=== PATIENT | male | born 1935 | race Caucasian/White ===

== ENCOUNTER 2019-06-12 10:30 | Observation (INO) | payer MEDICARE ==
[~2019-06-12] VITALS: Ht 175.3 cm; Wt 59.8 kg
[2019-06-12] MEDS ORDERED: SODIUM CHLORIDE 0.9% 1,000 ML IV SCH (11:20)
[2019-06-12] MEDS ORDERED: PLEASE ENTER HEIGHT AND WEIGHT MC SCH (11:30)
[2019-06-12] MEDS ORDERED: CEFAZOLIN PMX 1GM/50ML 50 ML IVPB ONE (11:30)
[2019-06-12] MEDS ORDERED: EZET10TA18 PO (11:31)
[2019-06-12] MEDS ORDERED: OMEP-110 PO (11:31)
[2019-06-12] MEDS ORDERED: AMLO10TA8 PO (11:31)
[2019-06-12 11:33] VITALS: BP 103/69
[2019-06-12] MEDS ORDERED: LIDOCAINE 1%, 20ML ONE (12:08)
[2019-06-12] MEDS ORDERED: FENTANYL PF 100 MCG/2ML ONE (12:08)
[2019-06-12] MEDS ORDERED: MIDAZOLAM 1 MG/ML, 2ML ONE (12:08)
[2019-06-12] MEDS ORDERED: CEFAZOLIN PMX 1GM/50ML 50 ML ONE (12:08)
[2019-06-12] MEDS ORDERED: CEFAZOLIN 1,000 MG ONE (12:08)
[2019-06-12 12:10] LABS: BASOPHILS # (AUTO) 0.09 x10^3/uL (0-0.1); BASOPHILS % (AUTO) 1 % (0-1); EOSINOPHILS # (AUTO) 0.08 x10^3/uL (0-0.4); EOSINOPHILS % (AUTO) 1 % (1-7); LYMPHOCYTES # (AUTO) 1.22 x10^3/uL (1-3.4); LYMPHOCYTES % (AUTO) 14 % (22-44); MD NO; MEAN CORPUSCULAR HEMOGLOBIN 31.5 pg (27.5-34.5); MEAN CORPUSCULAR HGB CONC 32.9 g/dL (33.2-36.2); MEAN CORPUSCULAR VOLUME 95.6 fL (81-97); MEAN PLATELET VOLUME 6.3 fL (7.4-10.4); MONOCYTES # (AUTO) 0.55 x10^3/uL (0.2-0.8); MONOCYTES % (AUTO) 6 % (2-9); NEUTROPHILS % (AUTO) 78 % (42-75); PLATELET COUNT 409 x10^3/uL (130-400); RED BLOOD COUNT 4.57 x10^6/uL (4.38-5.82); RED CELL DISTRIBUTION WIDTH 13.5 % (9.4-14.8)
[2019-06-12 12:22] LABS: ALBUMIN 3.1 g/dL (3.4-5.0); ANION GAP 5 mmol/L (5-15); CALCIUM 9.9 mg/dL (8.5-10.1); CHLORIDE 109 mmol/L (98-107)
[2019-06-12 12:27] LABS: ALANINE AMINOTRANSFERASE 26 U/L (12-78); ALKALINE PHOSPHATASE 90 U/L (45-117); BILIRUBIN,TOTAL 0.6 mg/dL (0.2-1.0); CHOL/HDL RATIO 2.6; CHOLESTEROL, TOTAL 157 mg/dL (140-239); CREATININE 0.89 mg/dL (0.7-1.3); HDL CHOL % 38 % (26-37); HDL CHOLESTEROL (DIRECT) 60 mg/dL (40-60); LDL CHOLESTEROL,CALCULATED 80 mg/dL (54-169); LDL/HDL RATIO 1.3 (0.5-3.0); TRIGLYCERIDES 86 mg/dL (50-200); VLDL CHOLESTEROL 17 mg/dL (0-25)
[2019-06-12] MEDS ORDERED: HYDROcodone/APAP 5/325 TABLET PO PRN (14:30)
[2019-06-12] MEDS ORDERED: ONDANSETRON 2MG/ML, 2ML IV PRN (14:30)
[2019-06-12] MEDS ORDERED: ZOLPIDEM 5MG TABLET PO PRN (14:30)
[2019-06-12] MEDS ORDERED: ACETAMINOPHEN 325 MG TABLET PO PRN (14:30)
[2019-06-12] MEDS ORDERED: HOLD MEDICATION MC PRN (14:30)
[2019-06-12 15:10] VITALS: BP 117/71
[2019-06-12 19:45] VITALS: BP 103/65
[2019-06-12] MEDS: CEFAZOLIN PMX 1GM/50ML 50 ML IVPB SCH (21:58)
[2019-06-12] MEDS: SODIUM CHLORIDE FLUSH 10ML SYR IVF SCH (21:58)
[2019-06-13 00:12] VITALS: BP 118/70
[2019-06-13 04:18] VITALS: BP 112/80
[2019-06-13] MEDS: CEFAZOLIN PMX 1GM/50ML 50 ML IVPB SCH (06:12)
[2019-06-13] MEDS ORDERED: ACET325T26 PO (08:17)
[2019-06-13] MEDS: SODIUM CHLORIDE FLUSH 10ML SYR IVF SCH (08:27)
[2019-06-13 08:36] VITALS: BP 122/72
[2019-06-13] MEDS ORDERED: OMEPRAZOLE 20 MG CAPSULE.DR PO SCH (09:00)
[2019-06-13] MEDS ORDERED: EZETIMIBE 10 MG TABLET PO SCH (09:00)
[2019-06-13] MEDS ORDERED: AMLODIPINE 10 MG TAB PO SCH (09:00)
== END 2019-06-13 09:22 | disposition home or self-care (01) ==
LOC: CACL 10:30 → 5SO 13:48 → CACL 14:11 → DCLOUNGE 06-13 09:08
PROVIDERS: ADMIT Internal Medicine Cardiovascular Disease; ATTEND Internal Medicine Cardiovascular Disease
DX: R00.1 Bradycardia, unspecified (principal); I49.5 Sick sinus syndrome; R06.02 Shortness of breath; I10 Essential (primary) hypertension; E78.00 Pure hypercholesterolemia, unspecified; Z79.899 Other long term (current) drug therapy; Z87.891 Personal history of nicotine dependence
CPT/HCPCS: 0399T; 33208; 36415; 71045; 71046; 80053; 80061; 85025; 93306; 96365; 96366; 99156; 99157; C1769; C1779; C1785; C1892; G0378; J0690; J2250; J3010; J3490